=== PATIENT | female | born 2000 | race Caucasian/White ===

== ENCOUNTER 2020-04-06 18:53 | Emergency (ER) | payer OTHER ==
[~2020-04-06] VITALS: Ht 165.1 cm; Wt 51.3 kg
[2020-04-06 19:06] VITALS: BP 153/112
[2020-04-06 19:46] VITALS: BP 153/112
[2020-04-06] MEDS ORDERED: KETOROLAC 30 MG/ML VIAL IM ONE (20:25)
== END 2020-04-06 21:00 | disposition home or self-care (01) ==
LOC: MED 18:53
DX: G44.209 Tension-type headache, unspecified, not intractable (principal); V49.9XXA Car occupant (driver) (passenger) injured in unspecified traffic accident, initial encounter; Y93.89 Activity, other specified; Y92.89 Other specified places as the place of occurrence of the external cause; Y99.8 Other external cause status
CPT/HCPCS: 96372; 99283; J1885

== ENCOUNTER 2020-04-16 16:55 | Emergency (ER) | payer OTHER, SELFPAY ==
[~2020-04-16] VITALS: Ht 162.6 cm; Wt 67.6 kg
[2020-04-16 17:14] VITALS: BP 125/78
--- NOTE | 2020-04-16 17:27 | NUR ---
C/O COUGH/FEVER + SORE THROAT X3 DAYS. PT IS AFEBRILE. RESP EVEN AND UNLABORED. VSS. SPO2 100% RA. LUNG SOUNDS CLEAR IN BILAT LOBES. DENIES N/V/D. AAOX4. ABLE TO AMBULATE TO TENT. PT DENIES CP/SOB. NO PMH NKA
--- NOTE | 2020-04-16 17:27 | NUR ---
COVID SWAB PERFORMED IN TENT. WALKED TO LAB
[2020-04-16 17:28] VITALS: BP 125/78
--- NOTE | 2020-04-16 17:29 | NUR ---
Patient discharged with v/s stable. Written and verbal after care instructions given and explained. Patient alert, oriented and verbalized understanding of instructions. Ambulatory with steady gait. All questions addressed prior to discharge. ID band removed. Patient advised to follow up with PMD. Rx of IBUPROFEN, ACETAMINOPHEN, ROBITUSSIN given. Patient educated on indication of medication including possible reaction and side effects. Opportunity to ask questions provided and answered.
== END 2020-04-16 17:29 | disposition home or self-care (01) ==
LOC: MED 16:55 → EEVIPCON 16:55 → MED 17:29
DX: R50.9 Fever, unspecified (principal); J02.9 Acute pharyngitis, unspecified; R05 Cough; Z20.828 Contact with and (suspected) exposure to other viral communicable diseases
CPT/HCPCS: 99283; C9803; U0003; 36415